=== PATIENT | male | born 1955 | race Caucasian/White ===

== ENCOUNTER 2020-09-08 11:15 | Outpatient (CLI) | payer MEDICARE, SELFPAY ==
--- NOTE | 2020-09-08 11:26 | XR_ITS ---
WS: [id number] Chest 2 views, 09/08/2020 Clinical Data: ABNORMAL WEIGHT LOSS Comparison: Portable chest, 05/19/2017. Findings: No nodules, masses or effusions are seen. The heart is normal. The pulmonary vascularity is not increased. No pneumonia or pneumothorax is seen. The diaphragms are flattened. The aortic arch a nd descending aorta are tortuous. XR/XR chest 2V* [id number] Impression: Hyperinflation and atherosclerosis.
== END 2020-09-08 11:16 | disposition home or self-care (01) ==
PROVIDERS: PCP Nurse Practitioner Family; Visit Provider Nurse Practitioner Family
DX: R63.4 Abnormal weight loss (principal); I70.90 Unspecified atherosclerosis
CPT/HCPCS: 71046

== ENCOUNTER → 2021-04-27 14:31 | Outpatient (BNVA) | payer MEDICARE, SELFPAY | PROVIDERS: PCP Nurse Practitioner Family; Referring Provider Nurse Practitioner Family; Visit Provider Dermatology | DX: B35.3 Tinea pedis (principal); B35.1 Tinea unguium; B35.2 Tinea manuum | CPT/HCPCS: 87220 ==

== ENCOUNTER → 2021-10-15 14:18 | Outpatient (BNVA) | payer MEDICARE, MEDICAID, SELFPAY | PROVIDERS: PCP Nurse Practitioner Family; Visit Provider Family Medicine | DX: R09.81 Nasal congestion (principal); Z20.822 Contact with and (suspected) exposure to COVID-19; J06.9 Acute upper respiratory infection, unspecified | CPT/HCPCS: 87400; 87635 ==

== ENCOUNTER 2021-12-14 07:47 | Day surgery (SDC) | payer MEDICARE, MEDICAID, SELFPAY ==
[2021-12-11 13:08] VITALS: BMI 23.3
--- NOTE | 2021-12-14 07:54 | ANES.PREANE2 ---
Pre-Anesthetic Assessment Height/Weight: Height 1.88 m Weight 82.554 kg Operation Date: 12/14/21 09:30 Proposed Procedures p EGD 82344/r13.10(Not Applicable) - Steve Kahn MD Familial anesthetic complications: None Was Beta Sánchez taken within 24 hours: N/A Was Clonidine taken within 24 hours: N/A Last intake: > 8hrs Social No alcohol and No tobacco Exam alert, oriented x 3, clear to auscultation bilaterally and regular rate & rhythm Airway Mallampati: Class II Dentition: other (multiple missing) Comments: Comments: Possible R TMJ Pulmonary None reported chronic cough and draininage CV/HEM None reported None reported Hepatic None reported GI None reported Metabolic None reported Musc/skel None reported Neuropsych None reported Anesthetic Plan ASA status: 2 Anesthesia: MAC Risk of > 500 ml blood loss (7ml/kg in children): No Medications/Allergies Home Medications Medication Instructions Recorded Confirmed Last Taken Type ciclopirox 8 % topical solution 1 applic TOPICAL DAILY #6.6 ml 04/27/21 12/11/21 Unknown Rx mupirocin 2 % topical ointment 1 applic TOPICAL BID #22 g 04/27/21 12/11/21 Unknown Rx betamethasone dipropionate 0.05 % 1 applic TOPICAL BID #45 g 05/23/21 12/11/21 Unknown Rx topical ointment triamcinolone acetonide 0.1 % 1 applic TOPICAL BID #80 g 05/23/21 12/11/21 Unknown Rx topical ointment aspirin 81 mg tablet,delayed 81 mg PO DAILY 12/06/21 12/11/21 Unknown History release (Adult Aspirin Regimen) Allergies Allergy/AdvReac Type Severity Reaction Status Date / Time Sulfa (Sulfonamide Allergy rash Verified 12/07/21 15:18 Antibiotics) [facility] Anesthesia Medical History No pertinent past medical history Surgical History No pertinent past surgical history Social History Smoking and tobacco status: former smoker (40 yrs ago) Pets and animals: Yes History of recent travel: No Data Anesthesia Cardiac Studies: No Data to Display
[2021-12-14 08:18] VITALS: BP 132/72; PULSE 66; RESP 16; TEMP 36.4; O2SAT 97
[2021-12-14] MEDS: sodium chloride 0.9% 1,000 ML 30 ML IV (08:27)
--- NOTE | 2021-12-14 08:49 | W.PM.OPSUD ---
Surgery/Procedure H&P Update DATE OF PROCEDURE: December 14, 2021 DATE H&P PERFORMED: 12/06/21 PREOP DIAGNOSIS: Dysphagia PRIMARY INDICATION FOR PROCEDURE: The same PLANNED PROCEDURE: Operation Date: 12/14/21 09:30 Proposed Procedures p EGD 99838/r13.10(Not Applicable) - Steve Kahn MD
[2021-12-14 10:04] VITALS: BP 120/72; PULSE 71; RESP 20; TEMP 36.3; O2SAT 96
[2021-12-14 10:14] VITALS: BP 119/73; PULSE 70; RESP 17; TEMP 36.3; O2SAT 96
== END 2021-12-14 11:00 | disposition home or self-care (01) ==
PROVIDERS: PCP Nurse Practitioner Family; Visit Provider Surgery
PROC: 0DJ08ZZ Inspection of Upper Intestinal Tract, Via Natural or Artificial Opening Endoscopic (ICD-10-PCS; CPT 43235; principal; 2021-12-14 09:30)
DX: R13.10 Dysphagia, unspecified (principal); K31.7 Polyp of stomach and duodenum; K21.00 Gastro-esophageal reflux disease with esophagitis, without bleeding; Z87.891 Personal history of nicotine dependence
CPT/HCPCS: 43239; 88305; J2704; J7030

== ENCOUNTER 2022-03-04 06:35 | Emergency (ER) | payer MEDICARE, MEDICAID, SELFPAY ==
[2022-03-04 07:07] VITALS: BP 152/76; PULSE 75; RESP 18; TEMP 36.5; O2SAT 97; BMI 22.4
[2022-03-04 07:11] VITALS: BP 151/76; PULSE 75; RESP 18; TEMP 36.6; O2SAT 98
--- NOTE | 2022-03-04 07:55 | W.ED.GENADLT ---
HPI - General Adult General: Chief complaint: General Medical Stated complaint: swelling of genitals Time Seen by Provider: 03/04/22 07:26 Source: patient Mode of arrival: ambulatory Limitations: no limitations History of Present Illness: 66-year-old male presents to the ER today for a swollen penis. Patient reports that he noticed this starting during the night last night. He reports he works around some old tools and an old shed yesterday. He denies coming into contact with anything that he knows of. Patient reports he did go outside to urinate 1 time while working there. Patient reports when he woke up during the night he noticed a little bit of swelling and then early this morning he noticed significant swelling. Patient reports he is able to go to the bathroom. He reports the foreskin is retracted however swollen. Patient denies any blood in the urine. Denies any itching. He reports discomfort from a tightness feeling but no pain. Patient denies having had anything like this before. Review of Systems General: Reports: 10 or more systems reviewed and unremarkable except in HPI and below PFSH ED PFSH: Medical History H/O coronary angiogram No pertinent past medical history Surgical History No pertinent past surgical history Social History Smoking and tobacco status: former smoker (40 yrs ago 2 packs a day ) Pets and animals: Yes History of recent travel: No Physical Exam Const: COMMON NORMALS: no acute distress, average body habitus, patient oriented x3, no limitations, healthy appearing and alert Resp: COMMON NORMALS: normal respiratory effort and No retractions EFFORT & INSPECTION: Yes able to speak in complete sentences Cardio: COMMON NORMALS: regular rate and regular rhythm RATE: regular rate RHYTHM: regular rhythm : MALE GROIN/PERINEUM EXAM: No Genital lesions present PENIS: uncircumcised, no ecchymosis, edematous (distal foreskin), not erythematous, no pustules, no vesicles, Localized penile swelling present and No Genital lesions present Extremity: COMMON NORMALS: normal to inspection and full ROM Neuro: COMMON NORMALS: patient oriented x3 SENSORIUM/ORIENTATION: Yes alert Psych: COMMON NORMALS: mental status grossly normal, Normal thought process present and cooperative THOUGHT PROCESS: Normal thought process present Skin: COMMON NORMALS: no rashes or lesions noted GENERAL SKIN EXAM: no rashes or lesions noted Course ED course: 66-year-old male presents to the ER today for foreskin and penis swelling. Patient reports this began during the night last night. He denies any known cause. Patient reports working outside yesterday around old tools in a shed. Patient denies any pain but reports a tight feeling in the penis. He has been able to urinate normally. We will get a UA at this time. Patient was also seen by Dr. Mccall. Vital Signs: Vital signs: Vital Signs Temperature 97.9 F 03/04/22 07:11 Pulse Rate 75 03/04/22 07:11 Respiratory Rate 18 03/04/22 07:11 Blood Pressure 151/76 03/04/22 07:11 Pulse Oximetry 98 03/04/22 07:11 MDM - General Adult Medical Decision Making 66-year-old male presents to the ER today for foreskin and penis swelling. Patient reports this began during the night last night. He denies any known cause. Patient reports working outside yesterday around old tools in a shed. Patient denies any pain but reports a tight feeling in the penis. He has been able to urinate normally. UA done in ER is normal. Patient was also seen by Dr. Mccall. Dr. Butts agrees this is a probable contact dermatitis given the lack of erythema associated with the edema. We will do a Medrol Dosepak at this time in addition to topical steroid [id number]. Patient should tow picker hydrocortisone. Recommend follow-up with his PCP in 3 to 5 days if no improvement. Return to the ER with new or worsening symptoms. Patient verbalized understanding and is in agreement with the treatment plan. Lab Data Laboratory Results Urine Color Yellow (Yellow) 03/04/22 08:00 Urine Appearance Clear (CLEAR) 03/04/22 08:00 Urine pH 5 (5-7) 03/04/22 08:00 Ur Specific [place] 1.015 (1.005-1.030) 03/04/22 08:00 Urine Protein Neg (Negative) 03/04/22 08:00 Urine Glucose (UA) Norm (Normal) 03/04/22 08:00 Urine Ketones Negative (Negative) 03/04/22 08:00 Urine Blood Neg (Negative) 03/04/22 08:00 Urine Nitrate Negative (Negative) 03/04/22 08:00 Urine Bilirubin Neg (Negative) 03/04/22 08:00 Urine Urobilinogen Norm mg/dL (Negative) 03/04/22 08:00 Ur Leukocyte Esterase Negative (Negative) 03/04/22 08:00 Critical Care Time Critical Care Time: Critical Care Time: No Discharge Plan Discharge Patient Disposition: Home Clinical Impression: Contact dermatitis Condition: Stable Prescriptions: New Medrol (Chris) 4 mg tablets,dose pack See Rx Instructions PO .COMPLEX Qty: 21 0RF Rx Instructions: orally per package directions No Action betamethasone dipropionate 0.05 % ointment 1 applic topical BID Qty: 45 3RF Rx Instructions: start- BID x 2 weeks to hand then switch to triamcinolone aspirin [Adult Aspirin Regimen] 81 mg tablet,delayed release (DR/EC) 81 mg PO DAILY 0RF Hold Instructions: Resume on 12/20/21. guaifenesin [Mucinex Fast-Max Chest-Congest] 100 mg/5 mL liquid 200 mg PO Q4H PRN0RF ipratropium bromide 42 mcg (0.06 %) spray,non-aerosol 2 spray intranasal QID 360 Days Qty: 15 12RF Rx Instructions: administer into each nostril Protonix 40 mg tablet,delayed release (DR/EC) 40 mg PO DAILY 30 Days Qty: 30 3RF Discharge Orders: Discharge ED (Routine); Ordered 03/04/22 Ordered By: Carole Kunz Referrals: Amara Caceres FNP [Primary Care Provider] - Discharge Diet: Usual diet Discharge Activity: Resume usual activity Patient Instructions: Opioid Safety Activity Restrictions/Additional Instructions: Take Medrol Dosepak as prescribed. Buy [id number] hydrocortisone cream and apply very lightly to swollen area. Follow-up with PCP in 3 to 5 days if no improvement. Return to the ER with new or worsening symptoms. Coding Level of Care Code ED [employer] for [employer]ong Fwd Exam Detailed
[2022-03-04 08:05] LABS: Add Urine Microscopic? NO; Charge for UA Resulting for Rev
[2022-03-04 08:16] LABS: Bilirubin Urine Neg (Negative); Blood Urine Neg (Negative); Glucose Urine UA Norm (Normal); Ketones Urine Negative (Negative); Leukocyte Esterase Urine Negative (Negative); Nitrate Urine Negative (Negative); Protein Urine Neg (Negative); Specific Gravity, Urine 1.015 (1.005-1.030); Urine Appearance Clear (CLEAR); Urine Color Yellow (Yellow); Urobilinogen Urine Norm (Negative); pH Urine 5 (5-7)
[2022-03-04 08:36] VITALS: BP 136/81; PULSE 76; RESP 18; TEMP 36.6; O2SAT 96
== END 2022-03-04 08:37 | disposition home or self-care (01) ==
PROVIDERS: Emergency Provider Physician Assistant; PCP Nurse Practitioner Family
DX: L25.9 Unspecified contact dermatitis, unspecified cause (principal)
CPT/HCPCS: 81003; 99282

== ENCOUNTER → 2022-03-19 10:11 | Outpatient (BNVA) | payer MEDICARE, MEDICAID, SELFPAY | PROVIDERS: PCP Nurse Practitioner Family; Referring Provider Nurse Practitioner Family; Visit Provider Nurse Practitioner | DX: G31.84 Mild cognitive impairment of uncertain or unknown etiology (principal) | CPT/HCPCS: 80053; 82607; 84443; 85025; 99204 ==

== ENCOUNTER → 2022-04-19 08:28 | Outpatient (BNVA) | payer MEDICARE, MEDICAID, SELFPAY | PROVIDERS: PCP Nurse Practitioner Family; Visit Provider Nurse Practitioner Family | DX: N40.1 Benign prostatic hyperplasia with lower urinary tract symptoms (principal); N52.9 Male erectile dysfunction, unspecified | CPT/HCPCS: 36415; 51798; 81003; 84153; 99203 ==

== ENCOUNTER 2022-05-03 11:32 | Outpatient (CLI) | payer MEDICARE, MEDICAID, SELFPAY ==
--- NOTE | 2022-05-03 11:45 | MR_ITS ---
WS: [id number] MRI HEAD WITH CONTRAST TECHNIQUE: Sagittal T1, T2 axial, T2 axial FLAIR, axial susceptibility weighted imaging, axial diffus ion weighted images, and coronal T2 images were obtained. Pre and post-T1 axial and post T1 coronal i mages. ADC and FSPGR images. CLINICAL INFORMATION: G31.84 - Mild cognitive impairment, so stated COMPARISON: MRI 2015,016. CTA 2016 FINDINGS: No evidence of restricted diffusion to suggest acute ischemia. Ventricular system and basal cisterns are patent. Mild small vessel changes. Mild parenchymal volume loss. Normal vascular flow voids at th e skull base. No extra-axial fluid collections. No evidence of mass or mass effect. No hemosiderin on susceptibly weighted images. Normal optic chiasm and pituitary infundibulum. Mild s ymmetric atrophy temporal lobes and hippocampal formations. Normal cavernous sinuses and Meckel's cav e.Mild mucosal thickening ethmoid air cells. Mastoid air cells are well aerated. No abnormal gadolinium enhancement. Normal visualized dural venous sinuses. MR/MR head wo/w con [id number] IMPRESSION: 1. No evidence of restricted diffusion to suggest acute ischemia. 2. Mild small vessel changes are stable compared to 2016. Mild parenchymal vol ume loss. 3. No extra axial fluid collections. No evidence of mass or mass effect. 4. No abnormal gadolinium enhancement. 5. No hemosiderin on the susceptibly weighted images 6. Paranasal sinuses and mastoid air cells well aerated. 7. No other suspicious findings.
[2022-05-03] MEDS: gadobenate dimeglumine 20 mL vial IV (12:16)
== END 2022-05-03 11:33 | disposition home or self-care (01) ==
PROVIDERS: PCP Nurse Practitioner Family; Visit Provider Nurse Practitioner
DX: G31.84 Mild cognitive impairment of uncertain or unknown etiology (principal)
CPT/HCPCS: 70553

== ENCOUNTER 2022-05-09 10:43 | Outpatient (CLI) | payer MEDICARE, MEDICAID, SELFPAY ==
--- NOTE | 2022-05-09 11:00 | FL_ITS ---
WS: [id number] Modified barium swallow, 05/09/2022 Clinical Data: R13.10 - Dysphagia, unspecified Comparison: None. Fluoroscopy time: 2.2 # of spot films: 1 Findings: The patient exhibited good mobility with oral transport of ingested material. There is minimal weakne ss in the upper esophagus. There is minimal residual in the vallecula which did clear on swallowing. There is no aspiration or penetration. FL/FL barium swallow modifd 61602 Impression: Minimal upper esophageal weakness which resulted in vallecular residual.
== END 2022-05-09 10:44 | disposition home or self-care (01) ==
LOC: RAD 10:44
PROVIDERS: PCP Nurse Practitioner Family; Visit Provider Surgery
DX: R13.10 Dysphagia, unspecified (principal)
CPT/HCPCS: 74230; 92611

== ENCOUNTER → 2022-05-16 11:14 | Outpatient (BNVA) | payer MEDICARE, MEDICAID, SELFPAY | PROVIDERS: PCP Nurse Practitioner Family; Visit Provider Otolaryngology | DX: R05.3 Chronic cough (principal); R68.89 Other general symptoms and signs; R13.10 Dysphagia, unspecified; R09.82 Postnasal drip | CPT/HCPCS: 99213 ==

== ENCOUNTER → 2022-05-21 10:27 | Outpatient (BNVA) | payer MEDICARE, MEDICAID, SELFPAY | PROVIDERS: PCP Nurse Practitioner Family; Visit Provider Surgery | DX: Z09 Encounter for follow-up examination after completed treatment for conditions other than malignant neoplasm (principal); R13.10 Dysphagia, unspecified | CPT/HCPCS: 99213 ==

== ENCOUNTER → 2022-06-07 09:11 | Outpatient (BNVA) | payer MEDICARE, MEDICAID, SELFPAY | PROVIDERS: PCP Nurse Practitioner Family; Visit Provider Urology | DX: N40.1 Benign prostatic hyperplasia with lower urinary tract symptoms (principal); R39.9 Unspecified symptoms and signs involving the genitourinary system; N52.9 Male erectile dysfunction, unspecified | CPT/HCPCS: 51798; 99213 ==

== ENCOUNTER → 2023-10-17 13:01 | Outpatient (BNVA) | payer MEDICARE, SELFPAY | PROVIDERS: PCP Nurse Practitioner Family; Visit Provider Podiatrist Foot & Ankle Surgery | DX: L60.8 Other nail disorders (principal); L60.3 Nail dystrophy; M20.41 Other hammer toe(s) (acquired), right foot; M20.42 Other hammer toe(s) (acquired), left foot | CPT/HCPCS: 99203 ==

== ENCOUNTER → 2024-01-20 15:53 | Outpatient (BNVA) | payer MEDICARE, SELFPAY | PROVIDERS: PCP Nurse Practitioner Family; Referring Provider Nurse Practitioner Family; Visit Provider Internal Medicine Cardiovascular Disease | DX: R07.9 Chest pain, unspecified (principal); R07.89 Other chest pain; R06.09 Other forms of dyspnea; R00.1 Bradycardia, unspecified; I49.9 Cardiac arrhythmia, unspecified; Z87.891 Personal history of nicotine dependence | CPT/HCPCS: 93005; 99204 ==

== ENCOUNTER 2024-01-29 07:00 | Outpatient (CLI) | payer MEDICARE, SELFPAY ==
--- NOTE | 2024-01-29 07:43 | ECG_ITS ---
[facility] Test Date: 2024-01-29 Pat Name: Winston Burt Department: Room: Gender: Male Senior [employer] Et[employer] Developer: : 1955 Requested By: Tino Montero Order Number: [id number] Adela MD: Tino Montero M.D. Interpretive Statements NAME OF STUDY: EXERCISE SESTAMIBI STRESS TEST INDICATION: Chest Pain, PROCEDURE: The baseline electrocardiogram showed normal sinus rhythm with normal ST-Ts. At the baseline, the patient's blood pressure was 159/84 mm Hg with a heart rate of 68. The patient exercised for 7 minutes and 16 seconds on a standard Elvis protocol. Patient attained a maximum heart rate of 139 beats per minute(92% of the maximum predicted heart rate) with a blood pressure at the peak exercise of 190/69 mm Hg. The EKG at the peak exercise revealed some nonspecific ST changes.. Patient did not have any chest pain or any significant arrhythmis with the exercise Sestamibi was injected 1 minute prior to the peak exercise During the recovery phase, there were no new changes. Blood pressure at the end of the recovery phase was 181/57 mm Hg with a heart rate of 91 per minute. CONCLUSION: 1. No significant EKG changes with the treadmill exercise 2. No exercise-induced chest pain or cardiac arrhythmia 3. Fair exercise tolerance, attained a maximum of 10.2 METs 4. Sestamibi/Sestamibi perfusion results pending; see separate report. Electronically Signed On 02-01-2024 13:30:54 CDT by Tino Montero M.D. [id number]
[2024-01-29 07:44] VITALS: BMI 23.6
--- NOTE | 2024-01-29 07:44 | NMCV_ITS ---
NM navarro perf SPECT r/s* [id number] Winston Burt Age: 68 Gender: M : 1955 Exam Date: 01/29/2024 08:01 Ordering Phys: Tino Montero MD ([email or web address]) Technologist: ADELINE Davis Exam Location: [facility] Indications: CORONARY ANGIOPLASTY STATUS STRESS TEST Please see separate stress test report in [facility] for full findings IMAGE PROTOCOL Rest/Stress 1 Exercise Day Radiopharmaceutical Dose (mCi) Administration Site Administered by Rest: Tc-99m 10.8 IV ADELINE Regan Sestamibi Stress:Tc-99m 32.7 IV ADELINE Regan Sestamibi Rest: 29-Jan-2024 60 Discovery 630 Stress: 29-Jan-2024 15 Discovery 630 Radiopharmaceutical was injected at 85 % maximum heart rate. Images obtained in supine and prone position. SPECT RESULTS Technical Quality: Excellent Raw Data Analysis: Normal Image Corrections: No attenuation or motion correction applied Summed Stress Score: 2 Summed Rest Score: 0 Summed Difference Score: 2 PERFUSION FINDINGS Small area of moderately decreased tracer uptake was noted in the mid inferoseptal region with a complete reversibility, only in the supine imaging. With the prone imaging, uniform myocardial tracer uptake was noted. FUNCTIONAL RESULTS (calculated via Gated SPECT) Stress Image LV EF (%): 68 Stress EDV (mL):117 TID: 0.96 Stress ESV (mL):37 FUNCTIONAL FINDINGS: Segmental wall motion analysis revealing no gross wall motion abnormalities IMPRESSIONS 1. Myocardial perfusion imaging revealing a small area of reversible defect in the mid inferoseptal region, may suggest ischemia in the distribution of the right coronary artery. However because inconsistency with the prone imaging, the reliability is questionable 2. Normal LV ejection fraction of 68%. 3. LV wall motion analysis revealing no gross wall motion abnormalities. 4. Normal LV volume No similar previous studies are available for comparison Dr Tino Montero MD [facility] (Electronically Signed) Final Date: 29 Jan 2024 13:41 S
[2024-01-29 09:09] VITALS: BP 181/57; PULSE 83
--- NOTE | 2024-01-29 09:25 | USCV_ITS ---
JavedWinston Age: 68 Gender: M : 1955 Exam Date: 01/29/2024 09:42 Ordering Phys: Tino Montero MD ([email or web address]) Technologist: CT Exam Location: [facility] [place] Indication: cp BP: 138 / 81 HR: 63 Rhythm: Sinus Technical Quality: Adequate MEASUREMENTS (Male / Female) Normal Values 2D ECHO LVOT Diameter 2.2 cm LV Ejection Fraction MOD 2C 68.5 % LV Ejection Fraction 2C AL 69.6 % LA Diameter 3.8 cm RA Systolic Volume 4C AL 36.6 ml RA Systolic Volume 4C MOD 35.0 ml LA Sys Volume AL 56.4 cm cubed LA Sys Volume Index AL 26.9 cm cubed/m squared Aorta at Sinotubular Diameter 2.9 cm IVC Diameter 1.3 cm M-MODE LA Ao Ratio MM 1.3 AV Cusp Separation MM 1.9 cm DOPPLER AV Peak Velocity 122.0 cm/s LVOT Peak Velocity 85.0 cm/s AV Area Cont Eq vti 2.9 cm squared AV Area Cont Eq pk 2.6 cm squared MV Peak Velocity 186.0 cm/s MV Area PHT 2.8 cm squared Mitral E to A Ratio 0.9 TV Peak Velocity 244.0 cm/s TR Peak Velocity 255.0 cm/s TR Peak Gradient 26.0 mmHg TV Peak E Velocity 77.0 cm/s Right Atrial Pressure 3.0 mmHg Pulmonary Artery Systolic Pressu 29.0 mmHg PV Peak Velocity 97.5 cm/s FINDINGS Left Ventricle Normal left ventricular size and systolic function, EF 68%.no regional wall motion abnormalities. Right Ventricle The right ventricle is normal in size and function. Right Atrium Left Atrium The left atrium is normal in size. Mitral Valve Trace mitral valve regurgitation. Aortic Valve Thickened aortic valve. Mild to moderate aortic valve regurgitation. Tricuspid Valve Trace tricuspid valve regurgitation. Pulmonic Valve Trace pulmonary valve regurgitation. Pericardium Normal pericardium without effusion. Aorta Normal ascending aorta dimension. IVC Normal inferior vena cava. CONCLUSIONS Normal left ventricular size and systolic function, EF 68%.no regional wall motion abnormalities. Normal cardiac chamber sizes. Mild to moderate aortic valve regurgitation. Thickened aortic valve. Trace of mitral and tricuspid regurgitation Estimated pulmonary artery peak systolic pressure 29 mmHg There is no pericardial effusion. There are no intracardiac masses. No similar previous studies are available for comparison Dr Tino Montero MD [facility] (Electronically Signed) Final Date: 03 Feb 2024 08:36 S
== END 2024-01-29 07:01 | disposition home or self-care (01) ==
PROVIDERS: PCP Nurse Practitioner Family; Visit Provider Internal Medicine Cardiovascular Disease
DX: R07.9 Chest pain, unspecified (principal); I35.1 Nonrheumatic aortic (valve) insufficiency
CPT/HCPCS: 36415; 78452; 93017; 93306; 96374; A9500

== ENCOUNTER → 2025-04-21 09:28 | Outpatient (BNVA) | payer MEDICARE, SELFPAY | PROVIDERS: PCP Nurse Practitioner Family; Visit Provider Podiatrist Foot & Ankle Surgery | DX: L60.8 Other nail disorders (principal); L60.3 Nail dystrophy; M20.41 Other hammer toe(s) (acquired), right foot; M20.42 Other hammer toe(s) (acquired), left foot | CPT/HCPCS: 99213 ==

== ENCOUNTER → 2025-05-26 10:25 | Outpatient (BNVA) | payer MEDICARE, SELFPAY | PROVIDERS: PCP Nurse Practitioner Family; Visit Provider Podiatrist Foot & Ankle Surgery | DX: L60.8 Other nail disorders (principal); L60.3 Nail dystrophy; M20.41 Other hammer toe(s) (acquired), right foot; M20.42 Other hammer toe(s) (acquired), left foot | CPT/HCPCS: 99213 ==

== ENCOUNTER → 2025-06-02 12:24 | Outpatient (BNVA) | payer MEDICARE, SELFPAY | PROVIDERS: Visit Provider Internal Medicine Cardiovascular Disease | DX: I49.9 Cardiac arrhythmia, unspecified (principal); I35.1 Nonrheumatic aortic (valve) insufficiency; I99.8 Other disorder of circulatory system; K21.9 Gastro-esophageal reflux disease without esophagitis; R07.9 Chest pain, unspecified; Z98.61 Coronary angioplasty status; Z87.891 Personal history of nicotine dependence | CPT/HCPCS: 99204; 99214 ==

== ENCOUNTER 2025-06-10 07:04 | Outpatient (CLI) | payer SELFPAY ==
--- NOTE | 2025-06-10 07:30 | CT_ITS ---
WS: [id number] CT CALCIUM SCORE REASON FOR VISIT: chest pain; Coronary artery disease risk assessment COMPARISON: None TECHNIQUE: Noncontrast coronary CT in combination with quantitative analysis performed on a separate workstation were used to determine CACS (Agatston score) TOTAL EXAM DOSE: 40.53 mGy.cm ECG GATING: Prospective SCAN RANGE: Pulmonary artery bifurcation to Inferior aspect of heart COMPLICATIONS: None FINDINGS: Technical Quality/Examination Quality: Good Augmentation: None OVERALL SCORES Total calcium score: 87 Total volume score: 86 mm3 Percentile: 25th-50th% ARTERY SCORES Left main coronary artery: 45 Left anterior descending artery: 0 Left circumflex artery: 10 Right coronary artery: 32 MINIMAL: 1-10 MILD: 11-100 MODERATE: 101-400 SEVERE:>400 CT/CT heart w calcium score 94461 IMPRESSION: 1. Total calcium score 87. 2. Calcium score places the patient between the 25th and 50th percentile for ma les of the same age. Mildly increased risk for cardiovascular event. GRADING OF CORONARY ARTERY DISEASE (BASED ON TOTAL CALCIUM SCORE) NO EVIDENCE OF CAD: 0 calcium score
== END 2025-06-10 07:05 | disposition home or self-care (01) ==
PROVIDERS: Visit Provider Internal Medicine Cardiovascular Disease
DX: R07.9 Chest pain, unspecified (principal)
CPT/HCPCS: 75571

== ENCOUNTER 2025-07-01 14:01 | Outpatient (CLI) | payer MEDICARE, SELFPAY ==
--- NOTE | 2025-07-01 14:15 | USCV_ITS ---
Winston Burt Age: 70 Gender: M : 1955 Exam Date: 07/01/2025 14:19 Ordering Phys: Cornelia Lagos MD ([email or web address]) Technologist: HIEU [place] [facility] [place]: CP BP: 124 / 70 HR: 89 Rhythm: Sinus Technical Quality: Adequate MEASUREMENTS (Male / Female) Normal Values 2D ECHO LV Diastolic Diameter PLAX 4.7 cm 4.2 - 5.9 / 3.9 - 5.3 cm IVS Diastolic Thickness 1.0 cm 0.6 - 1.0 / 0.6 - 0.9 cm IVS Systolic Thickness 1.6 cm LVPW Diastolic Thickness 1.3 cm 0.6 - 1.0 / 0.6 - 0.9 cm LVPW Systolic Thickness 1.5 cm LVOT Diameter 2.0 cm LV Ejection Fraction 2D Teich 62.8 % LV Ejection Fraction MOD 4C 64.4 % LV Ejection Fraction MOD 2C 62.3 % LV Ejection Fraction 2C AL 64.0 % LA Diameter 3.4 cm RA Systolic Volume 4C AL 61.5 ml RA Systolic Volume 4C MOD 56.3 ml LA Sys Volume AL 59.7 cm cubed LA Sys Volume Index AL 28.5 cm cubed/m squared Aorta at Sinotubular Diameter 2.8 cm IVC Diameter 1.9 cm M-MODE LA Ao Ratio MM 1.1 AV Cusp Separation MM 1.7 cm DOPPLER AV Peak Velocity 118.0 cm/s LVOT Peak Velocity 89.0 cm/s AV Area Cont Eq vti 2.9 cm squared AV Area Cont Eq pk 2.4 cm squared MV Peak Velocity 79.0 cm/s MV Area PHT 5.7 cm squared Mitral E to A Ratio 1.0 TR Peak Velocity 117.0 cm/s TR Peak Gradient 5.5 mmHg TV Peak E Velocity 53.0 cm/s PV Peak Velocity 88.0 cm/s FINDINGS Left Ventricle Normal left ventricular size, systolic function and wall thickness, with no regional wall motion abnormalities. Left ventricular ejection fraction is estimated at 60 %. Grade I/IV diastolic dysfunction (abnormal relaxation filling pattern), normal to mildly elevated filling pressures. Right Ventricle Normal right ventricular size and systolic function. Right Atrium Normal right atrial size. Left Atrium Normal left atrial size. IA Septum Normal appearance of the interatrial septum. Mitral Valve Normal mitral valve structure. No mitral valve stenosis or regurgitation. Aortic Valve Moderate aortic valve calcification. No aortic valve stenosis. Mild aortic valve regurgitation. Tricuspid Valve Normal tricuspid valve structure. No tricuspid valve stenosis or regurgitation. Normal pulmonary pressure. Pulmonic Valve Normal pulmonic valve structure. No pulmonic valve stenosis or regurgitation. Pericardium No pericardial effusion. Aorta Normal diameter of the aortic root and ascending thoracic aorta. IVC Normal IVC diameter. CONCLUSIONS Normal left ventricular size, systolic function and wall thickness, with no regional wall motion abnormalities. Left ventricular ejection fraction is estimated at 60 %. Grade I/IV diastolic dysfunction (abnormal relaxation filling pattern), normal to mildly elevated filling pressures. Moderate aortic valve calcification. No aortic valve stenosis. Mild aortic valve regurgitation. There is no pericardial effusion. Right atrial pressure is around 5 mm of mercury. Cornelia Lagos MD (Electronically Signed) Final Date: 12 July 2025 19:38 S
== END 2025-07-01 14:02 | disposition home or self-care (01) ==
LOC: RAD 14:03
PROVIDERS: Visit Provider Internal Medicine Cardiovascular Disease
DX: R07.9 Chest pain, unspecified (principal); R93.1 Abnormal findings on diagnostic imaging of heart and coronary circulation; I35.8 Other nonrheumatic aortic valve disorders; I35.1 Nonrheumatic aortic (valve) insufficiency
CPT/HCPCS: 93306